=== PATIENT | male | born 1985 | race African-American/Black ===

== ENCOUNTER 2018-09-21 14:13 | Emergency (ER) | payer MEDICAID ==
[~2018-09-21] VITALS: Ht 175.3 cm; Wt 95.0 kg
[~2018-09-21 14:13] MED LIST: TYLENOL
[2018-09-21] MEDS ORDERED: KETOROLAC 60MG/2ML VIAL IM STA (15:10)
[2018-09-21] MEDS ORDERED: BACITRACIN ZINC OINT UDPKT TOP ONE (15:15)
[2018-09-21] MEDS ORDERED: BACITRACIN 15GM TUBE TOP SCH (15:30)
[2018-09-21 17:34] VITALS: BP 160/80
== END 2018-09-21 17:37 | disposition home or self-care (01) ==
LOC: ER 14:13
DX: S93.422A Sprain of deltoid ligament of left ankle, initial encounter (principal); S82.492A Other fracture of shaft of left fibula, initial encounter for closed fracture; S00.83XA Contusion of other part of head, initial encounter; S80.211A Abrasion, right knee, initial encounter; V49.49XA Driver injured in collision with other motor vehicles in traffic accident, initial encounter; Y93.89 Activity, other specified; Y92.89 Other specified places as the place of occurrence of the external cause; Y99.8 Other external cause status
CPT/HCPCS: 29515; 70450; 72125; 73080; 73090; 73610; 96372; 99284; J1885; Z7610